=== PATIENT | female | born 1975 | race African-American/Black ===

== ENCOUNTER 2021-05-22 11:09 | Emergency (ER) | payer SELFPAY ==
[2021-05-22 11:14] VITALS: BP 153/90; PULSE 102; RESP 14; TEMP 35.7; O2SAT 99
--- NOTE | 2021-05-22 12:28 | ED.GENADULT ---
HPI - General Adult General Chief complaint: Wound/Laceration Stated complaint: wound on face Time Seen by Provider: 05/22/21 11:46 History of Present Illness HPI narrative: Patient is a 45-year-old female who presents ER with swelling to her right chin. She reports several days ago she had a cyst that she had popped and she believes there is a cyst underlying it that became irritated. She has swelling to the area without drainage or redness or pain. No dental pain. No fevers or chills or sweats. Related Data Home Medications Medication Instructions Recorded Confirmed No Home Medications 05/22/21 05/22/21 Allergies Allergy/AdvReac Type Severity Reaction Status Date / Time No Known Allergies Allergy Verified 05/22/21 11:11 Review of Systems Constitutional: Constitutional: Denies chills, Denies fever(s) and Denies weakness ENT: Denies dysphagia Comments: No dental pain, swelling over the right side of the chin Integumentary/Breasts: Skin/Breast: Denies pruritus, Denies erythema and Denies rash PMFSH Past Medical History Medical History (Updated 05/22/21 @ 12:39 by Guy Umanzor MD) Healthy female adult Surgical History Surgical History (Updated 05/22/21 @ 12:39 by Guy Umanzor MD) No pertinent past surgical history Exam Narrative: GENERAL: Well-appearing, well-nourished, and in no acute distress. HEAD: Normocephalic, atraumatic. ENT: Mucous membranes moist. Swelling over the right jaw near the chin. No cellulitis or pustules or vesicles. No rash. Swelling is ballotable. NECK: Supple. NEURO: Alert and oriented x3. PSYCH: Normal mood and affect. Course Course Emergency Course: No acute infection. Will refer to plastic surgery so that the cyst cavity can be removed with minimal scarring. Patient verbalized understanding. Vital Signs Vital signs: Vital Signs Temperature 96.2 F L 05/22/21 11:14 Pulse Rate 102 H 05/22/21 11:14 Respiratory Rate 14 05/22/21 11:14 Blood Pressure 153/90 H 05/22/21 11:14 Pulse Oximetry 99 05/22/21 11:14 Temperature 96.2 F L 05/22/21 11:14 Pulse Rate 102 H 05/22/21 11:14 Respiratory Rate 14 05/22/21 11:14 Blood Pressure 153/90 H 05/22/21 11:14 Pulse Oximetry 99 05/22/21 11:14 Medical Decision Making Vital Signs Vital Signs: Vital Signs Temperature 96.2 F L 05/22/21 11:14 Pulse Rate 102 H 05/22/21 11:14 Respiratory Rate 14 05/22/21 11:14 Blood Pressure 153/90 H 05/22/21 11:14 Pulse Oximetry 99 05/22/21 11:14 Temperature 96.2 F L 05/22/21 11:14 Pulse Rate 102 H 05/22/21 11:14 Respiratory Rate 14 05/22/21 11:14 Blood Pressure 153/90 H 05/22/21 11:14 Pulse Oximetry 99 05/22/21 11:14 Discharge Plan Discharge Clinical Impression: Cyst of face Patient Disposition: Home, Self-Care Condition: Stable Instructions: Cyst (ED) Additional Instructions: Contact the plastic surgery office. They will be able to remove the cyst with minimal cosmetic defect. Return the ER if you have fever over 100.4 ?F, you cannot keep down food or water, you have chest pain or shortness of breath, you have additional concerns. Prescriptions: No Action No Home Medications RF: 0 Follow-up/Referrals: Greyson Reid MD [Physician] - 1 Week PHYSICIAN,[facility] RN [Primary Care Provider] -
== END 2021-05-22 12:55 | disposition home or self-care (01) ==
PROVIDERS: Emergency Provider Emergency Medicine
DX: L72.3 Sebaceous cyst (principal)
CPT/HCPCS: 99281